=== PATIENT | male | born 1950 | race Caucasian/White ===

== ENCOUNTER 2018-04-25 05:19 | Inpatient (IN) ==
--- NOTE | 2018-04-09 13:58 | EKG Report ---
Test Performed on : 04/09/2018 1:45:32 PM Test Reason : PAT Blood Pressure : / mmHG Vent. Rate : 061 BPM Atrial Rate : 061 BPM P-R Int : 126 ms QRS Dur : 082 ms QT Int : 406 ms P-R-T Axes : 082 061 053 degrees QTc Int : 408 ms Normal sinus rhythm. with sinus arrhythmia. Normal ECG When compared with ECG of 29-APR-2016 13:54, premature ventricular complexes. are no longer present Previous EKG (29-APR-2016) has reversed leads Nonspecific T wave abnormality no longer evident in Inferior leads Confirmed by John ESPARZA, Myron Slade ([id number]) on 04/09/2018 10:33:33 PM
[2018-04-09 14:29] LABS: URINE SOURCE CLEAN CATCH
[2018-04-09 14:34] LABS: BASO% 0.4 % (0.0-0.8); HEMATOCRIT 47.3 % (42.0-52.0); HEMOGLOBIN 15.8 g/dL (14.0-18.0); LYMPH# 3.84 X1000 (1.2-3.4); LYMPH% 32.9 % (20.5-51.1); MCH 29.6 PG (27-31); MCHC 33.4 g/dL (33-37); MCV 88.6 FL (81-99); MONO# 0.94 X1000 (0.11-0.59); MONO% 8.1 % (1.7-9.3); NEUT# 6.13 X1000 (1.4-6.5); NEUT% 52.6 % (42.2-75.2); PLT 255 X1000 (130-400); RBC 5.34 XMIL (4.7-6.1); RDW 12.7 % (11.5-14.5); WBC 11.66 X1000 (4.8-10.8)
[2018-04-09 14:35] LABS: BASO# 0.05 X1000 (0.0-0.2)
[2018-04-09 14:40] LABS: PTT 31.3 Seconds (22.3-41.8)
[2018-04-09 14:51] LABS: BILIRUBIN URINE NEGATIVE (NEGATIVE); BLOOD URINE NEGATIVE (NEGATIVE); COLOR YELLOW; GLUCOSE URINE NEGATIVE (NEGATIVE); KETONE URINE NEGATIVE (NEGATIVE); LEUKOCYTES URINE NEGATIVE (NEGATIVE); NITRITE URINE NEGATIVE (NEGATIVE); PROTEIN URINE TRACE mg/dL (NEGATIVE); SP GRAVITY URINE 1.027; TURBIDITY URINE CLEAR (CLEAR); UROBILINOGEN URINE NORMAL (NORMAL)
[2018-04-09 15:06] LABS: UR EPITHELIAL CELLS <10 /HPF (<10); URINE BACTERIA NEGATIVE /HPF; URINE RBC <10 /HPF (<10); URINE WBC <10 /HPF (<10)
[2018-04-09 15:14] LABS: AGAP 10; BUN 18 mg/dL (8-22); CALCIUM 9.7 mg/dL (8.8-10.2); CHLORIDE 102 mmol/L (98-107); COSMO 285; CREATININE 0.7 mg/dL (0.7-1.2); ESTIMATED GFR > 60; GLUCOSE 99 mg/dL (70-104); POTASSIUM 4.8 mmol/L (3.5-5.1); SODIUM 142 mmol/L (136-145); TCO2 30 mmol/L (25-35)
[2018-04-25] MEDS ORDERED: HURRICAINE SPRAY (DOSE) ONE (06:07)
[2018-04-25] MEDS ORDERED: COLACE ONE (06:19)
[2018-04-25] MEDS ORDERED: PEPCID ONE (06:19)
[2018-04-25] MEDS ORDERED: REGLAN ONE (06:19)
[2018-04-25] MEDS ORDERED: CELEBREX ONE (06:20)
[2018-04-25] MEDS ORDERED: LYRICA ONE (06:20)
[2018-04-25] MEDS ORDERED: KEFZOL 2 GM/D5W 2 GM/50 ML IVPB ONE (06:20)
[2018-04-25] MEDS ORDERED: LR 1,000 ML ONE (06:20)
[2018-04-25] MEDS ORDERED: XYLOCAINE-MPF 2% ONE ×2 (06:21→07:57)
[2018-04-25] MEDS ORDERED: QUELICIN (DOSE) ONE (06:21)
[2018-04-25] MEDS ORDERED: STERILE WATER INJ. ONE (06:21)
[2018-04-25] MEDS ORDERED: NORCURON ONE (06:21)
[2018-04-25] MEDS ORDERED: ROBINUL ONE (06:21)
[2018-04-25] MEDS ORDERED: DIPRIVAN 1% ONE (06:22)
[2018-04-25] MEDS ORDERED: FENTANYL ONE (06:23)
[2018-04-25] MEDS ORDERED: ZOFRAN ONE (06:32)
[2018-04-25] MEDS ORDERED: DECADRON ONE (06:32)
[2018-04-25] MEDS ORDERED: OFIRMEV 1000 MG/ISOTONIC SOLN 1,000 MG/100 ML BOTTLE ONE (06:32)
[2018-04-25] MEDS ORDERED: LUBRIFRESH PM OPH OINTMENT ONE (06:33)
[2018-04-25] MEDS ORDERED: TORADOL ONE (06:48)
[2018-04-25] MEDS ORDERED: DURAMORPH ONE (06:48)
[2018-04-25] MEDS ORDERED: SENSORCAINE-MPF 0.5%/EPI 1:200,000 ONE ×2 (06:49→06:54)
[2018-04-25] MEDS ORDERED: CYKLOKAPRON 1,000 MG/NS 1,000 MG/100 ML IVPB ONE (06:49)
[2018-04-25] MEDS ORDERED: EXPAREL 1.3% ONE ×2 (06:49→06:54)
[2018-04-25] MEDS ORDERED: SODIUM CHLORIDE 0.9% ONE (06:49)
[2018-04-25] MEDS ORDERED: NEOSPORIN G.U. IRRIGANT ONE ×2 (06:49→07:15)
[2018-04-25] MEDS ORDERED: LABETALOL (DOSE) ONE (07:36)
[2018-04-25] MEDS ORDERED: DILAUDID ONE (07:38)
[2018-04-25] MEDS ORDERED: SODIUM CHLORIDE 0.9% 10 ML ONE (07:38)
[2018-04-25] MEDS ORDERED: NEOSTIGMINE ONE (07:58)
[2018-04-25 08:06] LABS: URINE SOURCE CATH
[2018-04-25 08:28] LABS: BILIRUBIN URINE NEGATIVE (NEGATIVE); BLOOD URINE NEGATIVE (NEGATIVE); COLOR YELLOW; GLUCOSE URINE NEGATIVE (NEGATIVE); KETONE URINE NEGATIVE (NEGATIVE); LEUKOCYTES URINE NEGATIVE (NEGATIVE); NITRITE URINE NEGATIVE (NEGATIVE); PH URINE 5.5; PROTEIN URINE TRACE mg/dL (NEGATIVE); SP GRAVITY URINE 1.026; TURBIDITY URINE CLEAR (CLEAR); UROBILINOGEN URINE NORMAL (NORMAL)
[2018-04-25 08:29] LABS: UR EPITHELIAL CELLS <10 /HPF (<10); URINE BACTERIA NEGATIVE /HPF; URINE RBC <10 /HPF (<10); URINE WBC <10 /HPF (<10)
[2018-04-25] MEDS ORDERED: EPHEDRINE ONE (08:32)
--- NOTE | 2018-04-25 09:26 | OPERATIVE NOTE ---
PROCEDURE DATE: 04/25/2018 PREOPERATIVE DIAGNOSIS: Right degenerative glenohumeral arthritis. POSTOPERATIVE DIAGNOSIS: Right degenerative glenohumeral arthritis. PROCEDURE: Right reversal shoulder arthroplasty. DePuy Delta Xtend size 16 press-fit stem with a 42+ 3 humeral cup, 42 eccentric Glenosphere, and a standard metaglene. SURGEON: Dr. Eben Soto. TEMPORARY STAFF ACCOUNTANT: JA Nance. SECOND SPLITTING MACHINE OPERATOR HELPER: Abisai Cordova RN. ANESTHESIA: General. IV FLUIDS: 1500 mL lactated Ringer. ESTIMATED BLOOD LOSS: 100 mL. COMPLICATIONS: None. INDICATION: The patient is a 67-year-old male with chronic history of pain and discomfort in his right shoulder. X-rays revealed degenerative osteoarthritis and recommendation to proceed with right reverse shoulder arthroplasty was offered. Risks and benefits of surgery were explained including the risks of anesthesia, , bleeding, infection, failure to relieve pain, postoperative stiffness, nerve injury, blood clots, and other imponderables. All questions were answered, and the patient and family wished to proceed with surgery. DETAILS OF OPERATION: The patient was taken to the operating room and placed supine on the operating table. Once adequate anesthesia was obtained, the patient was placed in semi-Anderson beach-chair position. The right shoulder was subsequently prepped and draped in the usual sterile fashion. Standard deltopectoral incision was made with skin knife. Medial and skin envelopes developed. Standard medial parapatellar arthrotomy was then performed. Deltopectoral incision was then made. Cephalic vein was retracted laterally with the deltoid. Retractors then placed. The clavipectoral fascia was elevated. Attention then turned to the subscapularis tendon. It appeared approximately 1 cm medial to its insertion. It was released. Stay suture was placed in the medial portion of the tendon. The shoulder was then dislocated anteriorly. Further release of the posterior/superior aspect of the rotator cuff was performed. A starting reamer was then passed up to a size 14, and the intramedullary guide was then placed, and the proximal humeral head was then resected. The inferior osteophyte was removed. After adequate resection had been performed, retraction was turned the glenoid. Circumferential dissection performed with a deep knife. A guide was then placed in position. Guide pin was then placed. A reaming was then conducted. The central hole was then dilated. The wound was copiously irrigated with antibiotic pulsatile lavage. A standard metaglene was then impacted in position. Three locking screws and 1 nonlocking screw was placed and had good purchase. The wound was copiously once again. A 42 eccentric Glenosphere was then placed with the eccentricity placed inferiorly. The intramedullary guide was placed approximately 15 degrees of retroversion, and the proximal humerus was reamed. It was noted to be some loosening. Therefore, it was reamed up to size 16, and appeared to be the correct size. The wound was copiously irrigated with antibiotic and pulsatile lavage. A standard size 16 Delta Xtend press-fit stem was impacted in position. It had good fit. Trial cup size (42 + 3). Humeral cup had excellent stability and range of motion. Trial cup was removed. The wound was copiously with antibiotic and pulsatile lavage. A 42+ 3 humeral cup was then impacted. Shoulders reduced carried through range of motion and had good range of motion and good stability. Exparel was placed in the deep soft tissue. The wound was copiously irrigated with antibiotic pulsatile lavage. A #2 FiberWire was used to repair the subscapularis tendon. The remaining portion of the Exparel was placed in the deep tissue as well as the skin and subcutaneous tissue. The wound was copiously once again with antibiotic and pulsatile lavage. 2-0 Vicryl was then used to repair the subcutaneous tissue, followed by running 2-0 Prolene. Benzoin and Steri-Strips were applied. Adaptic, sterile 4x4s, ABD pad, and tape of the right shoulder, followed by shoulder immobilizer. All counts were correct. Patient tolerated the procedure well and was transferred to the recovery room in stable condition the. cc: Eben Soto MD
[2018-04-25] MEDS ORDERED: NS 1,000 ML ONE (09:44)
--- NOTE | 2018-04-25 10:09 | Diag Imaging Result Doc PS360 ---
SHOULDER 1 VIEW RIGHT - 04/25/2018 INDICATION: right TSA TECHNIQUE: COMPARISON: None FINDINGS: There has been right total shoulder arch plasty. Alignment is anatomic. No hardware fracture or loosening. IMPRESSION: No complication. Electronically signed by Daryn Garcia 04/25/2018 10:06 AM
[2018-04-25] MEDS ORDERED: FLU VACCINE IM ONE (10:26)
[2018-04-25] MEDS ORDERED: PNEUMOVAX 23 IM ONE (10:45)
[2018-04-25] MEDS ORDERED: MORPHINE IV PRN ×3 (11:30)
[2018-04-25] MEDS ORDERED: ZOFRAN PO PRN (11:30)
[2018-04-25] MEDS: NS 1,000 ML IV SCH ×2 (11:30→22:09)
[2018-04-25] MEDS ORDERED: OXY IR PO PRN (11:30)
[2018-04-25] MEDS ORDERED: CYKLOKAPRON 1,000 MG in NS 100 ML IV ONE (13:30)
[2018-04-25] MEDS: OXY IR PO PRN ×3 (14:57→22:08)
[2018-04-25] MEDS: TYLENOL PO SCH ×2 (15:01→20:12)
[2018-04-25] MEDS: KEFZOL 2 GM/D5W 2 GM/50 ML IVPB IV SCH (15:35)
[2018-04-25] MEDS: PERIDEX MT SCH (20:12)
[2018-04-26] MEDS: KEFZOL 2 GM/D5W 2 GM/50 ML IVPB IV SCH
[2018-04-26] MEDS: OXY IR PO PRN ×3 (01:12→11:46)
[2018-04-26] MEDS: NS 1,000 ML IV SCH (01:55)
[2018-04-26 05:25] LABS: HEMOGLOBIN 12.5 g/dL (14.0-18.0)
[2018-04-26 05:40] LABS: AGAP 8; BUN 14 mg/dL (8-22); CALCIUM 7.6 mg/dL (8.8-10.2); CHLORIDE 103 mmol/L (98-107); COSMO 277; CREATININE 0.8 mg/dL (0.7-1.2); ESTIMATED GFR > 60; GLUCOSE 140 mg/dL (70-104); POTASSIUM 4.3 mmol/L (3.5-5.1); SODIUM 137 mmol/L (136-145); TCO2 26 mmol/L (25-35)
[2018-04-26] MEDS: TYLENOL PO SCH ×2 (05:47→11:45)
--- NOTE | 2018-04-26 06:49 | PROGRESS NOTE ---
DATE: 04/26/2018 SUBJECTIVE: The patient is a pleasant, 67-year-old male who is 1 day status post right reverse shoulder arthroplasty. He is currently resting comfortably. OBJECTIVE: On physical exam, the patient's wound looks good. There are no signs or symptoms of infection. He is neurovascularly intact throughout. His hemoglobin is 12.5, hematocrit is 37.0. IMPRESSION: Postoperative day #1 status post right reverse shoulder arthroplasty. PLAN: At this point, the patient's dressing have been changed. We will discontinue his drain, Hep-Lock his IV. We will plan on discharging him home. We will arrange for outpatient physical therapy. cc: Eben Soto MD
[2018-04-26 08:07] VITALS: BP 115/65
[2018-04-26] MEDS: PERIDEX MT SCH (08:51)
[2018-04-26] MEDS ORDERED: PRAVACHOL PO SCH (09:00)
[2018-04-26] MEDS ORDERED: PLAVIX PO SCH (09:00)
== END 2018-04-26 12:09 | disposition home or self-care (01) | DRG 483 ==
LOC: SURHOLD 05:19 → 4N 09:18
PROVIDERS: ADMIT Orthopaedic Surgery Adult Reconstructive Orthopaedic Surgery; ATTEND Orthopaedic Surgery Adult Reconstructive Orthopaedic Surgery
CPT/HCPCS: 73020; 80048; 81001; 85014; 85018; 85025; 85610; 85730; 86850; 86900; 86901; 88305; 88311; 90686; 90732; 93005; 93010; A9270; C9290; J0131; J0330; J0690; J1100; J1170; J1885; J2274; J2275; J2405; J3010; J7030; J7120; Q9974